=== PATIENT | male | born 1980 | race African-American/Black ===

== ENCOUNTER 2022-12-06 11:14 | Outpatient (CLI) | payer MEDICAID | END 2022-12-06 11:15 | disposition critical access hospital (66) | LOC: EMS 11:14 | DX: M54.2 Cervicalgia (principal); R07.9 Chest pain, unspecified | CPT/HCPCS: A0425; A0429; A0999 ==

== ENCOUNTER 2022-12-06 11:39 | Emergency (ER) | payer MEDICAID ==
[2022-12-06 12:07] LABS: BASOPHILS % (AUTO) 0.6 %; EOSINOPHILS % (AUTO) 0.3 %; HCT - HEMATOCRIT 43.6 % (42.0-52.0); HGB - HEMOGLOBIN 13.9 g/dL (14.0-18.0); LYMPHOCYTES # (AUTO) 1.2 10^3/uL (1.5-3.5); LYMPHOCYTES % (AUTO) 37.9 %; MEAN CORPUSCULAR HEMOGLOBIN 29.8 pg (27.0-31.0); MEAN CORPUSCULAR HGB CONC 31.9 g/dL (32.0-36.0); MEAN CORPUSCULAR VOLUME 93.6 fL (80.0-94.0); MEAN PLATELET VOLUME 9.1 fL (7.4-11.4); MONOCYTES # (AUTO) 0.3 10^3/uL (0.0-1.0); MONOCYTES % (AUTO) 9.8 %; NEUTROPHILS # (AUTO) 1.6 10^3/uL (1.5-6.6); NEUTROPHILS % (AUTO) 51.4 %; PLT - PLATELET COUNT 209 10^3/uL (130-450); RED BLOOD COUNT 4.66 10^6/uL (4.70-6.10); RED CELL DISTRIBUTION WIDTH 13.4 % (12.0-15.0); WHITE BLOOD COUNT 3.2 x10^3/uL (4.8-10.8)
[2022-12-06 12:14] LABS: PT - PROTHROMBIN TIME 11.7 secs (9.9-12.6)
[2022-12-06 12:21] LABS: ALBUMIN 4.3 g/dL (3.2-5.5); ALBUMIN/GLOBULIN RATIO 1.3 (1.0-2.2); ALKALINE PHOSPHATASE 56 IU/L (42-121); ALT ALANINE AMINOTRANSFERASE 20 IU/L (10-60); AST ASPARTATE AMINOTRANSFERASE 19 IU/L (10-42); BILIRUBIN,TOTAL 0.3 mg/dL (0.2-1.0); BUN - BLOOD UREA NITROGEN 20 mg/dL (6-20); CALCIUM 9.8 mg/dL (8.5-10.3); CARBON DIOXIDE - CO2 29 mmol/L (21-32); CHLORIDE 99 mmol/L (101-111); CK- CREATINE KINASE 144 IU/L (22-269); CREATININE 0.8 mg/dL (0.6-1.2); ETOH - ETHANOL < 5.0 mg/dL; GFR - MDRD 107 (>89); GLUCOSE 88 mg/dL (70-100); LIPASE 188 U/L (22-51); MAGNESIUM 2.2 mg/dL (1.7-2.8); POTASSIUM 4.2 mmol/L (3.5-5.0); SODIUM 137 mmol/L (135-145); TOTAL PROTEIN 7.5 g/dL (6.7-8.2)
--- NOTE | 2022-12-06 12:24 | ED Physician Documentation ---
History of Present Illness - Stated complaint Stated Complaint: NECK PX - Chief complaint Chief Complaint: Trauma Hd/Nk - Additonal information Additional information: 42-year-old male presenting to the emergency department with neck pain. Reports tripped and fell striking the left side of his neck against a coffee table approximately 1 hour ago. No loss of consciousness. Reports is not currently take any medications however is uncertain if he has been prescribed blood thinning medications in the past. Endorses for some intermittent episodes of chest pain. Also states that he hears a "whooshing noise" In his left ear and a "throbbing" down the left side of his neck. SCOTT reviewed. Evaluation November 24 at [facility] for chest pain, evaluations November 22, November 03, October 30 for chest pain, right ear pain, traumatic rupture of right TM Review of Systems Constitutional: denies: Fever Eyes: denies: Loss of vision Ears: reports: Ear pain Nose: denies: Rhinorrhea / runny nose Throat: denies: Dental pain / toothache Cardiac: reports: Chest pain / pressure Respiratory: denies: Dyspnea GI: denies: Nausea, Vomiting PD PAST MEDICAL HISTORY - Present Medications Home Medications: Ambulatory Orders Medication Instructions Recorded Confirmed No Known Home Medications 12/06/22 12/06/22 - Allergies Allergies/Adverse Reactions: Allergies Allergy/AdvReac Type Severity Reaction Status Date / Time No Known Drug Allergies Allergy Verified 12/06/22 11:46 PD ED PE NORMAL - Vitals Vital signs reviewed: Yes - General General: Alert and oriented X 3, No acute distress - HEENT HEENT: Atraumatic - Neck Neck: Supple, no meningeal sign, No bony TTP, No JVD, No bruit, Other (C-collar in place) - Cardiac Cardiac: RRR, No gallop - Respiratory Respiratory: No respiratory distress, Clear bilaterally - Abdomen Abdomen: Normal bowel sounds, Non tender - Male Male : Deferred - Rectal Rectal: Deferred - Back Back: No CVA TTP, No spinal TTP - Derm Derm: Normal color - Extremities Extremities: No deformity - Neuro Neuro: Alert and oriented X 3, label rewinder 2-12 intact, No motor deficit, Normal speech Results - Vitals Vitals: Vital Signs - 24 hr 12/06/22 12/06/22 11:49 12:34 Temperature 36.9 C Heart Rate 83 82 Respiratory 20 12 Rate Blood Pressure 120/76 109/70 O2 Saturation 100 97 Oxygen O2 Source Room air - EKG (time done) 1145 Rate: Rate (enter#) (76) Rhythm: NSR [place]: Normal Intervals: Normal DE QRS: Normal Ischemia: Normal ST segments Compare to prior EKG: Old EKG unavailable Computer interpretation: Agree with computer - Labs Labs: Laboratory Tests 12/06/22 12/06/22 12/06/22 12:01 12:01 12:01 WBC 3.2 L RBC 4.66 L Hgb 13.9 L Hct 43.6 MCV 93.6 MCH 29.8 MCHC 31.9 L RDW 13.4 Plt Count 209 MPV 9.1 Neut # (Auto) 1.6 Lymph # (Auto) 1.2 L [place] # (Auto) 0.3 Eos # (Auto) 0.0 Baso # (Auto) 0.0 Absolute Nucleated RBC 0.00 Nucleated RBC % 0.0 PT 11.7 INR 1.0 Sodium 137 Potassium 4.2 Chloride 99 L Carbon Dioxide 29 Anion Gap 9.0 BUN 20 Creatinine 0.8 Estimated GFR (MDRD) 107 Glucose 88 Lactic Acid Calcium 9.8 Magnesium 2.2 Total Bilirubin 0.3 AST 19 ALT 20 Alkaline Phosphatase 56 Total Creatine Kinase 144 Troponin I High Sens Total Protein 7.5 Albumin 4.3 Globulin 3.2 Albumin/Globulin Ratio 1.3 Lipase 188 H Ethyl Alcohol < 5.0 SARS-CoV-2 (PCR) 12/06/22 12/06/22 12/06/22 12:01 12:01 12:27 WBC RBC Hgb Hct MCV MCH MCHC RDW Plt Count MPV Neut # (Auto) Lymph # (Auto) [place] # (Auto) Eos # (Auto) Baso # (Auto) Absolute Nucleated RBC Nucleated RBC % PT INR Sodium Potassium Chloride Carbon Dioxide Anion Gap BUN Creatinine Estimated GFR (MDRD) Glucose Lactic Acid 1.3 Calcium Magnesium Total Bilirubin AST ALT Alkaline Phosphatase Total Creatine Kinase Troponin I High Sens < 2.3 L Total Protein Albumin Globulin Albumin/Globulin Ratio Lipase Ethyl Alcohol SARS-CoV-2 (PCR) NOT DETECTED PD Medical Decision Making - ED course Complexity details: reviewed results, re-evaluated patient, d/w patient Reviewed Lab Results: Patient has leukopenia with lymphopenia. Mild elevation in lipase without epigastric tenderness on exam. Negative high-sensitivity troponin. Social Determinants of Health: Homelessness Drug Therapy Requiring Monitoring for Toxicity: None Procedural Risk Factors Specific to Patient: None ED course: Patient 42-year-old male presenting to the emergency department brought in by EMS after reported fall and striking the left side of his neck. C-collar was placed prior to arrival. No focal or lateralizing neurologic deficits. Patient also endorsed for intermittent episodes of chest pain. Chart review demonstrates multiple recent ER evaluations for similar chest pain per ED i.e. documentation. EKG as outlined above is negative for indications of acute cardiac ischemia or dysrhythmia. CT head and cervical spine benign. Chest x-ray did demonstrate findings concerning for some airway disease and patient does have a leukopenia with lymphopenia, possibly indicating a active viral infection however he denied symptoms of this sort and his COVID screening swab was negative. He was monitored in the emergency department for several hours and on reevaluation found to be resting comfortably and in no acute distress. At this time I will discharge for follow-up with primary care. Return precautions given prior to discharge. Departure - Departure Disposition: 01 Home, Self Care Clinical Impression: Neck pain, Leukopenia Fall Qualifiers: Encounter type: initial encounter Qualified Code(s): W19.XXXA - Unspecified fall, initial encounter Instructions: ED Neck Back Pain General Comments: Thank you for allowing us to care for you today at [facility]. Today in the emergency department your evaluated for any possible life- threatening medical emergency. Testing in the emergency department today was very reassuring. There was no life-threatening medical condition identified on either your lab work, EKG, the CT scans of your head, cervical spine or chest x-ray. Please get plenty of rest and take plenty of fluids. You can take [id number] ibuprofen or acetaminophen to help with neck pain or strain. Please make a follow-up appoint with your primary care doctor. If it anytime you have new or worsening symptoms please not hesitate to return.
[2022-12-06 12:35] VITALS: BP 109/70
--- NOTE | 2022-12-06 12:39 | XRAY Report ---
PROCEDURE: Chest 1 View X-Ray INDICATIONS: chest pain TECHNIQUE: One view of the chest was acquired. COMPARISON: None. FINDINGS: Surgical changes and devices: None. Lungs and pleura: No pleural effusions or pneumothorax. Increased bronchovascular markings in bilate ral hilar region are seen with mild bronchial wall thickening suggestive of mild reactive airway dise ase. No definite focal infiltrate. Mediastinum: Mediastinal contours appear normal. Heart size is normal. Bones and chest wall: No suspicious bony lesions. Overlying soft tissues appear unremarkable. IMPRESSION: Suggestion of mild reactive or related disease such as bronchitis or asthma. No definite focal infilt rate. No pleural effusion or pneumothorax. Reviewed by: Mike Jones MD on 12/06/2022 12:38 PM PST Approved by: Mike Jones MD on 12/06/2022 12:38 PM PST Station ID: [id number]
--- NOTE | 2022-12-06 12:57 | CT Report ---
PROCEDURE: HEAD WO INDICATIONS: trauma TECHNIQUE: Noncontrast 4.5 mm thick angled axial sections acquired from the foramen magnum to the vertex. For r adiation dose reduction, the following was used: automated exposure control, adjustment of mA and/or kV according to patient size. COMPARISON: None. FINDINGS: Image quality: Excellent. CSF spaces: Basal cisterns are patent. No extra-axial fluid collections. Ventricles are normal in size and shape. Brain: No midline shift. No intracranial masses or hemorrhage. Gonzalez-white matter interface is norm al. Skull and face: Calvarium and visualized facial bones are intact, without suspicious lesions. Sinuses: Visualized sinuses and mastoids are clear. IMPRESSION: No CT evidence of acute intracranial abnormalities. No gross acute skull fracture. Reviewed by: Mike Jones MD on 12/06/2022 12:56 PM PST Approved by: Mike Jones MD on 12/06/2022 12:56 PM PST Station ID: [id number]
--- NOTE | 2022-12-06 12:58 | CT Report ---
PROCEDURE: CERVICAL SPINE WO INDICATIONS: trauma TECHNIQUE: Noncontrast 3 mm thick sections acquired from the skull base to the T4 level. Sagittal and coronal r eformats were then constructed. For radiation dose reduction, the following was used: automated exp osure control, adjustment of mA and/or kV according to patient size. COMPARISON: None. FINDINGS: Image quality: Excellent. Bones: No fractures or dislocations. Visualized superior ribs are intact. Soft tissues: Prevertebral soft tissues are normal in thickness. No paravertebral hematomas. No ap ical pneumothoraces. IMPRESSION: 1. No acute cervical spine fracture or dislocation. Reviewed by: Mike Jones MD on 12/06/2022 12:57 PM PST Approved by: Mike Jones MD on 12/06/2022 12:57 PM PST Station ID: [id number]
[2022-12-06 14:20] LABS: MUDS CUTOFF CONCENTRATIONS CUTOFF CONC BELOW:
[2022-12-06 14:24] LABS: BILIRUBIN,URINE NEGATIVE (NEGATIVE); GLUCOSE, URINE (UA) NEGATIVE (NEGATIVE); KETONES,URINE (UA) NEGATIVE (NEGATIVE); LEUKOCYTE ESTERASE, URINE NEGATIVE (NEGATIVE); NITRITE,URINE NEGATIVE (NEGATIVE); OCCULT BLOOD,URINE NEGATIVE (NEGATIVE); PH,URINE 7.5 PH (5.0-7.5); PROTEIN,URINE NEGATIVE (NEGATIVE); UROBILINOGEN,URINE 0.2 (NORMAL) E.U./dL (NORMAL)
[2022-12-06 14:26] LABS: CLARITY,URINE CLEAR (CLEAR)
[2022-12-06 14:34] LABS: AMPHETAMINE SCREEN,URINE NEGATIVE (NEGATIVE); BARBITURATE SCREEN,UR NEGATIVE (NEGATIVE); BENZODIAZEPINES SCREEN, URINE NEGATIVE (NEGATIVE); COCAINE SCREEN URINE NEGATIVE (NEGATIVE); METHADONE SCREEN, URINE NEGATIVE (NEGATIVE); METHAMPHETAMINES SCREEN, URINE NEGATIVE (NEGATIVE); OPIATE SCREEN, URINE NEGATIVE (NEGATIVE); OXYCODONE SCREEN, URINE NEGATIVE (NEGATIVE); PROPOXYPHENE SCREEN, URINE NEGATIVE (NEGATIVE); THC CANNABINOID SCREEN, URINE NEGATIVE (NEGATIVE); TRICYCLIC ANTIDEPRESSANT,URINE NEGATIVE (NEGATIVE)
== END 2022-12-06 14:38 | disposition home or self-care (01) ==
LOC: ED 11:39
DX: M54.2 Cervicalgia (principal); D72.819 Decreased white blood cell count, unspecified; W01.190A Fall on same level from slipping, tripping and stumbling with subsequent striking against furniture, initial encounter; D72.810 Lymphocytopenia; Z59.00 Homelessness unspecified; Z20.822 Contact with and (suspected) exposure to COVID-19
CPT/HCPCS: 36415; 80053; 80306; 80320; 81001; 81003; 82550; 83605; 83690; 83735; 84484; 85025; 85610; 87086; 93005; 99284